=== PATIENT | male | born 1995 | race Two or more races ===

== ENCOUNTER 2023-03-02 19:09 | Emergency (ER) | payer SELFPAY ==
[~2023-03-02] VITALS: Ht 177.8 cm; Wt 109.1 kg
[2023-03-02 19:11] VITALS: BP 128/87; TEMP 99; O2SAT 98
== END 2023-03-03 05:01 | disposition left against medical advice (07) ==
LOC: M ED 19:09
DX: Z53.21 Procedure and treatment not carried out due to patient leaving prior to being seen by health care provider (principal)

== ENCOUNTER 2024-12-19 11:15 | Emergency (ER) | payer SELFPAY ==
[~2024-12-19] VITALS: Ht 177.8 cm; Wt 109.1 kg
[2024-12-19 11:36] VITALS: TEMP 98.9
[2024-12-19] MEDS ORDERED: METO50TA7 (11:38)
[2024-12-19 13:26] LABS: BASO % 0.3 % (0.0-1.0); EOS # 0.1 10^3/uL (0.0-0.5); EOS % 0.9 % (0.0-3.0); HEMOGLOBIN 14.4 g/dl (13.5-17.5); LYMPH # 2.6 10^3/uL (1.5-5.0); LYMPH % 21.9 % (24.0-44.0); MEAN CORPUSCULAR HEMOGLOBIN 30.7 pg (27.0-33.0); MEAN CORPUSCULAR HGB CONC 33.5 g/dl (32.0-36.5); MEAN CORPUSCULAR VOLUME 91.7 fl (80.0-96.0); MONO # 1.1 10^3/uL (0.0-0.8); MONO % 9.4 % (2.0-8.0); NEUTROPHILS % 67.2 % (36.0-66.0); PLATELET COUNT, AUTOMATED 244 10^3/uL (150-450); RED BLOOD COUNT 4.69 10^6/uL (4.30-6.10)
[2024-12-19 13:40] LABS: ERYTHROCYTE SEDIMENTATION RATE 40 mm/hr (0-15)
[2024-12-19 13:48] LABS: ALBUMIN 4.1 G/DL (3.2-5.2); ALKALINE PHOSPHATASE 73 U/L (40-129); ALT/SGPT 27 U/L (7.0-40); AST/SGOT 11 U/L (<34); BILIRUBIN,DIRECT 0.2 MG/DL (<0.4); BILIRUBIN,TOTAL 0.6 MG/DL (0.3-1.2); BLOOD UREA NITROGEN 15 MG/DL (9-23); C REACTIVE PROTEIN QUANTITATIV 4.93 MG/DL (<1.0); CALCIUM LEVEL 9.4 MG/DL (8.5-10.1); CARBON DIOXIDE LEVEL 28 MMOL/L (20-31); CHLORIDE LEVEL 102 MMOL/L (98-107); CREATININE FOR GFR 0.71 MG/DL (0.70-1.30); GLOMERULAR FILTRATION RATE > 60.0 (>60); GLUCOSE, FASTING 84 MG/DL (60-100); POTASSIUM SERUM 4.1 MMOL/L (3.5-5.1); SODIUM LEVEL 139 MMOL/L (136-145); TOTAL PROTEIN 7.8 G/DL (5.7-8.2)
[2024-12-19 14:00] LABS: PROCALCITONIN 0.05 ng/ml
[2024-12-19 15:23] LABS: SALICYLATE LEVEL < 3.0 MG/DL (<30)
[2024-12-19 15:24] LABS: MONO SCRN NEGATIVE (NEGATIVE)
[2024-12-19] MEDS ORDERED: ISOVUE-370 76% 100ML VIAL As Ordered ONE (15:36)
[2024-12-19] MEDS ORDERED: AMOX875T2 PO (16:57)
[2024-12-19 17:00] VITALS: BP 115/77; O2SAT 97
== END 2024-12-19 17:25 | disposition home or self-care (01) ==
LOC: M ED 11:15
DX: J03.90 Acute tonsillitis, unspecified (principal); Z79.2 Long term (current) use of antibiotics; Z79.899 Other long term (current) drug therapy
CPT/HCPCS: 36415; 70491; 80048; 80076; 80179; 83605; 84145; 85025; 85652; 86140; 86308; 87040; 87880; 99284; Q9967